=== PATIENT | male | born 1970 | race Caucasian/White ===

== ENCOUNTER 2017-04-24 13:42 | Inpatient (IN) | payer OTHER ==
[2017-04-24] VITALS (8 sets, daily range): BP systolic 138–167; BP diastolic 75–85; PULSE 73–89; RESP 12–26; TEMP 98.5–98.6; O2SAT 95–97
[~2017-04-24] VITALS: Ht 167.6 cm; Wt 93.0 kg
[2017-04-24] MEDS ORDERED: ONDANSETRON HCL 4 MG/2 ML VIAL ONE (13:50)
[2017-04-24] MEDS ORDERED: MIDAZOLAM HCL 5 MG/ML VIAL (1 ML) ONE (13:57)
[2017-04-24] MEDS ORDERED: Post-op Orders (for Pharmacy) XX ONE (14:00)
[2017-04-24] MEDS ORDERED: SODIUM CHLORIDE 0.9% FLUSH 10 ML FLUSH IV FLUSH PRN (14:00)
[2017-04-24] MEDS ORDERED: NALOXONE HCL 0.4 MG/ML AMP IV PUSH PRN (14:00)
[2017-04-24 14:07] LABS: AUTOMATED NEUTROPHIL # 17.7 TH/MM3 (1.8-7.7); BASOPHIL # 0.1 TH/MM3 (0-0.2); BASOPHIL % 0.3 % (0.0-2.0); EOSINOPHIL # 0.2 TH/MM3 (0-0.4); EOSINOPHIL % 0.8 % (0.0-4.0); HEMATOCRIT 40.7 % (39.0-51.0); HEMOGLOBIN 14.4 GM/DL (13.0-17.0); LYMPH % 11.4 % (9.0-44.0); LYMPHOCYTE # 2.4 TH/MM3 (1.0-4.8); MEAN CELL VOLUME 87.8 FL (80.0-100.0); MEAN CORPUSCULAR HGB CONC 35.3 % (32.0-36.0); MEAN PLATELET VOLUME 9.4 FL (7.0-11.0); MONO % 3.6 % (0.0-8.0); MONOCYTE # 0.8 TH/MM3 (0-0.9); NEUT % 83.9 % (16.0-70.0); PLATELET COUNT 202 TH/MM3 (150-450); RED BLOOD COUNT 4.64 MIL/MM3 (4.50-5.90); WHITE BLOOD COUNT 21.1 TH/MM3 (4.0-11.0)
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
[2017-04-24 14:15] LABS: PROTHROMBIN TIME - PATIENT 10.1 SEC (9.8-11.6)
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
[2017-04-24] MEDS ORDERED: IOHEXOL 350 MG/ML 10 ML VIAL (for RAD DIAG) IVCONTRAST ONE (14:16)
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
[2017-04-24] MEDS: SODIUM CHLOR 0.9% 1000 ML INJ 1,000 ML IV SCH ×2 (15:03→22:17)
[2017-04-24] MEDS: HYDROmorphone HCL PF 2 MG/ML VIAL IV PUSH PRN ×3 (15:07→19:16)
[2017-04-24] MEDS: FAMOTIDINE 20 MG/2 ML VIAL IV PUSH SCH ×2 (15:08→22:18)
[2017-04-24] MEDS ORDERED: SODIUM PHOSPHATE INJ 30 MMOL in SODIUM CHLOR 0.9% 250 ML INJ 240 ML IV PRN (19:00)
[2017-04-24] MEDS ORDERED: POTASSIUM CHLOR 20 MEQ PREMIX 100 ML IV PRN ×2 (19:00)
[2017-04-24] MEDS ORDERED: POTASSIUM CHLOR 40 MEQ PREMIX 100 ML IV PRN ×2 (19:00)
[2017-04-24] MEDS ORDERED: MAGNESIUM SULFATE INJ 4 GM in SODIUM CHLORIDE 0.9% INJ 92 ML IV PRN (19:00)
[2017-04-24] MEDS ORDERED: POTASSIUM PHOSPHATE INJ 30 MMOL in SODIUM CHLOR 0.9% 250 ML INJ 250 ML IV PRN (19:00)
[2017-04-24] MEDS ORDERED: POTASSIUM CHLORIDE 20 MEQ PWD PACKET PO PRN (19:00)
[2017-04-24] MEDS ORDERED: MAGNESIUM OXIDE 400 MG TAB PO PRN (19:00)
[2017-04-24] MEDS ORDERED: MAGNESIUM SULFATE INJ 2 GM in SODIUM CHLORIDE 0.9% INJ 96 ML IV PRN (19:00)
[2017-04-24] MEDS ORDERED: POTASSIUM PHOSPHATE MONOBASIC 500 MG TAB PO PRN (19:00)
[2017-04-24] MEDS ORDERED: POTASSIUM PHOSPHATE MONOBASIC 500 MG TAB PO/TUBE PRN (19:00)
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
[2017-04-24 20:27] LABS: MAGNESIUM 1.6 MG/DL (1.5-2.5); PHOSPHORUS 1.3 MG/DL (2.5-4.9)
[2017-04-24] MEDS: SODIUM CHLORIDE 0.9% FLUSH 10 ML FLUSH IV FLUSH SCH (22:17)
[2017-04-25] VITALS (10 sets, daily range): BP systolic 98–162; BP diastolic 54–81; PULSE 64–84; RESP 8–20; TEMP 98.2–98.9; O2SAT 92–99
[2017-04-25] MEDS: HYDROmorphone HCL PF 2 MG/ML VIAL IV PUSH PRN (03:22)
--- NOTE | 2017-04-25 04:56 | RADRPT ---
EXAM DATE/TIME: 04/25/2017 03:12 [place] COMPARISON: CHEST SINGLE AP, April 24, 2017, 13:42. INDICATIONS : Short of breath. MEDICAL HISTORY : None. SURGICAL HISTORY : None. ENCOUNTER: Initial ACUITY: 1 day PAIN SCORE: 0/10 LOCATION: Bilateral chest FINDINGS: A single view of the chest demonstrates the lungs to be symmetrically aerated without evidence of mas s, infiltrate or effusion. No evidence of pneumothorax. The cardiomediastinal contours are unremark able. Healed lateral right 7th rib fracture. Left lateral clavicular plate.. CONCLUSION: The lungs are clear. Kobe Pedersen MD on April 25, 2017 at 4:53 Board Certified Radiologist. This report was verified electronically.
[2017-04-25 05:56] LABS: AUTOMATED NEUTROPHIL # 5.5 TH/MM3 (1.8-7.7); BASOPHIL % 0.2 % (0.0-2.0); EOSINOPHIL % 0.1 % (0.0-4.0); HEMATOCRIT 29.6 % (39.0-51.0); HEMOGLOBIN 10.4 GM/DL (13.0-17.0); LYMPH % 16.5 % (9.0-44.0); LYMPHOCYTE # 1.2 TH/MM3 (1.0-4.8); MEAN CELL VOLUME 90.3 FL (80.0-100.0); MEAN CORPUSCULAR HEMOGLOBIN 31.8 PG (27.0-34.0); MEAN CORPUSCULAR HGB CONC 35.2 % (32.0-36.0); MEAN PLATELET VOLUME 9.6 FL (7.0-11.0); MONO % 6.7 % (0.0-8.0); MONOCYTE # 0.5 TH/MM3 (0-0.9); NEUT % 76.5 % (16.0-70.0); PLATELET COUNT 146 TH/MM3 (150-450); RED BLOOD COUNT 3.28 MIL/MM3 (4.50-5.90); RED CELL DISTRIBUTION WIDTH 13.3 % (11.6-17.2); WHITE BLOOD COUNT 7.2 TH/MM3 (4.0-11.0)
[2017-04-25] MEDS ORDERED: VANCOMYCIN HCL 1000 MG VIAL ONE (06:48)
[2017-04-25] MEDS ORDERED: SODIUM CHLOR 0.9% 250 ML INJ 250 ML ONE (06:49)
[2017-04-25] MEDS ORDERED: BUPIVACAINE/EPINEPHRINE 0.25% PF 10 ML VIAL ONE (06:49)
[2017-04-25 07:11] LABS: BICARBONATE 22.4 MEQ/L (21.0-32.0); CALCIUM 7.5 MG/DL (8.5-10.1); CREATININE 0.7 MG/DL (0.60-1.30)
[2017-04-25] MEDS ORDERED: GENTAMICIN SULFATE 80 MG/2 ML VIAL ONE (07:23)
[2017-04-25] MEDS ORDERED: ceFAZolin 2 GM PREMIX 50 ML ONE (07:33)
[2017-04-25] MEDS: ACETAMINOPHEN 1000 MG/100 ML 100 ML IV SCH ×3 (08:00→23:49)
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
[2017-04-25] MEDS ORDERED: HYDR-3583 PO (08:46)
[2017-04-25] MEDS ORDERED: XARE10TA PO (08:46)
[2017-04-25] MEDS ORDERED: WHEEMIS3 (08:46)
[2017-04-25] MEDS: SODIUM CHLORIDE 0.9% FLUSH 10 ML FLUSH IV FLUSH SCH ×2 (09:00→21:09)
[2017-04-25] MEDS: DOCUSATE SODIUM 50 MG/SENNA 8.6 MG TAB PO SCH ×2 (09:00→21:09)
[2017-04-25] MEDS: MAGNESIUM HYDROXIDE SUSP 30 ML CUP PO SCH ×2 (09:00→21:09)
[2017-04-25] MEDS: LIDOCAINE HCL 5% PATCH T-DERMAL SCH (09:00)
[2017-04-25] MEDS: FAMOTIDINE 20 MG/2 ML VIAL IV PUSH SCH ×2 (09:00→21:09)
[2017-04-25] MEDS: SODIUM CHLOR 0.9% 1000 ML INJ 1,000 ML IV SCH (09:15)
[2017-04-25] MEDS: LACTATED RINGER'S 1000 ML INJ 1,000 ML IV SCH ×2 (09:25→21:22)
[2017-04-25] MEDS ORDERED: diphenhydrAMINE HCL 25 MG CAP PO PRN (09:30)
--- NOTE | 2017-04-25 09:32 | PD.OP ---
cc: Agapito Minaya MD Operative Report Date of Surgery: Apr 25, 2017 Preoperative Diagnosis: Comminuted bilateral femur fractures Postoperative Diagnosis: Procedure: Reduction and antegrade intramedullary nail fixation right femur, reduction and retrograde intramedullary nail fixation left femur Surgeon: Agapito Minaya Residential Therapist(s): EDDIE Andrea PA-C The surgical procedure was assisted by my physician veterinary technician assistant. My P.A. presence was necessary throughout this case for the manipulation and positioning of the surgical extremity. My P.A. was assisting me throughout the duration of this procedure. The skill set of a physician veterinary technician assistant was medically necessary to complete this procedure. During the surgical case the neurosurgical nurse practitioner was working at the back table and the physician veterinary technician assistant was directly assisting me. Operation and Findings: Implants used: [11]mm x [380]mm Synthes TFNA troch nail, 11 mm x 360 mm Synthes retrograde femoral nail Plan of activity: Toe-touch weightbearing left leg, 50% weightbearing right leg for transfers only Patient was seen and evaluated preoperatively. The patient has significant hip pain from bilateral femur fractures. The risk and benefits of surgery were discussed in depth with the patient to include bleeding, infection, nonunion, malunion, need for hip replacement, painful hardware, as well as medical competitions including blood clots, stroke, heart attack, and . Informed consent was obtained. Operative site was marked. Patient was brought to the operating room and placed on fracture table. IV sedation was administered by anesthesiologist. Timeout procedure was performed. Hip and leg were prepped with alcohol followed by DuraPrep and draped in the usual sterile fashion. IV antibiotics were given prior to incision. Procedure began with attention toward right femur. Traction was applied. The leg was manipulated to achieve reduction. Excellent reduction was achieved of comminuted fracture. Fluoroscopy was used to confirm reduction. A three inch incision was made proximal to the trochanter. Subcutaneous tissue was dissected bluntly. Guidepin was placed at the tip of the trochanter and advanced into the femoral canal. Fluoroscopy confirmed appropriate guidepin placement. A opening reamer was placed over the guidepin. A long ball tipped guide pin was now placed down the femoral canal into the center of the distal femur. The nail length was now measured. Fluoroscopy confirmed appropriate guidepin placement. Flexible reamers were now passed over the guidepin to ream the intramedullary canal. The Synthes TFNA nail was attached to the insertion handle. Nail was now placed over the guidepin into the femoral canal. Fluoroscopy confirmed appropriate nail placement. A second incision was made over the lateral thigh. Cannulas were placed through the insertion handle down to the femur. Guidepin was now placed through the femoral nail into the center of the femoral head. Fluoroscopy confirmed appropriate guidepin placement. Screw length was measured. Cannulated drill was placed over the guidepin. Appropriate length lag screw was now placed. Traction was released and compression was applied. The set screw was now tightened in dynamic mode. Next, using perfect [place] technique two distal interlocking screws were placed. Screw holes were predrilled and screw lengths were measured. Final fluoroscopy revealed well aligned fracture with well-placed hardware. Incision was closed with 3-0 Vicryl and ever. Sterile dressings were applied. Next attention was turned towards the left femur. The left femur was visualized under fluoroscopy. It was decided that retrograde femoral nail would be preferable to antegrade femoral nail for this fracture pattern. Patient was now repositioned on a Mani table. Left leg was prepped with alcohol followed by Hibiclens and draped in the usual sterile fashion. Procedure began with reduction of fracture. Traction was applied. The leg was manipulated to achieve reduction. Excellent reduction was achieved. Fluoroscopy was used to confirm reduction. A two inch incision was made over the anterior knee. A medial arthrotomy was created. Guidepin was placed into the distal femur and advanced into the femoral canal. Fluoroscopy confirmed appropriate guidepin placement. A opening reamer was placed over the guidepin. A long ball tipped guide pin was now placed down the femoral canal into the center of the proximal femur. The nail length was now measured. Fluoroscopy confirmed appropriate guidepin placement. Flexible reamers were now passed over the guidepin to ream the intramedullary canal. The Synthes nail was attached to the insertion handle. Nail was now placed over the guidepin into the femoral canal. Fluoroscopy confirmed appropriate nail placement. A small percutaneous incisions were made over the lateral thigh. Cannulas were placed through the insertion handle down to the femur. Using the insertion handle as a guide the distal interlocking screw holes were predrilled and screw lengths were measured. 3 Appropriate length screws was now placed. Next, using perfect [place] technique 3 proximal interlocking screws were placed. Screw holes were predrilled and screw lengths were measured. Final fluoroscopy revealed well aligned fracture with well-placed hardware. Incision was closed with 0 Vicryl, 3-0 Vicryl and ever. Sterile dressings were applied. Patient was awakened and transferred to recovery room. Agapito Minaya MD Apr 25, 2017 09:32
[2017-04-25] MEDS ORDERED: Post-op Orders (for Pharmacy) XX ONE (09:48)
[2017-04-25] MEDS ORDERED: DO NOT ADM ANY ANTICOAGULANT DRUGS PRN (09:50)
[2017-04-25] MEDS ORDERED: MIDAZOLAM HCL 2 MG/2 ML VIAL ONE (09:51)
[2017-04-25] MEDS ORDERED: *morphine SULFATE 4 MG/ML PERIprocedure ONLY ONE ×3 (09:55→10:38)
[2017-04-25] MEDS ORDERED: *MEPERIDINE 25 MG INJ VIAL PERIprocedural Use ONLY ONE (10:04)
--- NOTE | 2017-04-25 10:48 | PD.CONS ---
HPI Service Neurosurgery Consult Requested By JAQUI Murray Reason for Consult Intraparenchymal haemorrhage Primary Care Physician Unknown Review of Systems CONSTITUTIONAL: HEENT: INTEGUMENTARY: RESPIRATORY: CARDIOVASCULAR: GASTROINTESTINAL: GENITOURINARY: MUSCULOSKELETAL: HAEMATOLOGICAL/LYMPHATIC: PSYCHIATRIC: NEUROLOGICAL: Past Family Social History Allergies: Coded Allergies: aspirin (Verified Allergy, Unknown, 04/24/17) Physical Exam Vital Signs Vital Signs Date Time Temp Pulse Resp B/P (MAP) Pulse Ox O2 Delivery O2 Flow Rate FiO2 04/25/17 10:15 74 16 158/90 (112) 98 Nasal Cannula 2 04/25/17 10:00 80 16 162/89 (113) 95 Nasal Cannula 2 04/25/17 09:49 98.3 95 16 173/84 (113) 97 04/25/17 07:07 100 Room Air 04/25/17 07:04 98.5 87 15 144/72 (96) 100 04/25/17 06:00 74 04/25/17 04:00 98.8 71 12 98/54 (69) 92 04/25/17 04:00 71 04/25/17 02:00 76 04/25/17 00:00 98.2 72 12 118/71 (87) 98 04/25/17 00:00 70 04/24/17 22:00 74 04/24/17 20:00 78 04/24/17 20:00 98.6 78 17 138/75 (96) 97 04/24/17 19:00 99 Room Air 04/24/17 18:03 98.6 73 16 138/84 (102) 95 04/24/17 18:00 76 04/24/17 16:00 76 04/24/17 15:26 98.5 88 12 140/85 (103) 95 04/24/17 14:45 98.6 89 26 167/75 (105) 95 04/24/17 13:42 97 Nasal Cannula 4.00 04/24/17 13:42 97 4.00 Physical Exam CONSTITUTIONAL: HEENT: INTEGUMENTARY: RESPIRATORY: CARDIOVASCULAR: GASTROINTESTINAL: GENITOURINARY: MUSCULOSKELETAL: HAEMATOLOGICAL/LYMPHATIC: PSYCHIATRIC: NEUROLOGICAL: Laboratory Laboratory Tests Test 04/24/17 13:44 04/25/17 05:28 White Blood Count 21.1 7.2 Red Blood Count 4.64 3.28 Hemoglobin 14.4 10.4 Bedside Hemoglobin 13.9 Hematocrit 40.7 29.6 Bedside Hematocrit 41.0 Mean Corpuscular Volume 87.8 90.3 Mean Corpuscular Hemoglobin 31.0 31.8 Mean Corpuscular Hemoglobin Concent 35.3 35.2 Red Cell Distribution Width 13.0 13.3 Platelet Count 202 146 Mean Platelet Volume 9.4 9.6 Neutrophils (%) (Auto) 83.9 76.5 Lymphocytes (%) (Auto) 11.4 16.5 Monocytes (%) (Auto) 3.6 6.7 Eosinophils (%) (Auto) 0.8 0.1 Basophils (%) (Auto) 0.3 0.2 Neutrophils # (Auto) 17.7 5.5 Lymphocytes # (Auto) 2.4 1.2 Monocytes # (Auto) 0.8 0.5 Eosinophils # (Auto) 0.2 0.0 Basophils # (Auto) 0.1 0.0 CBC Comment DIFF FINAL DIFF FINAL Differential Comment Prothrombin Time 10.1 Prothromb Time International Ratio 1.0 Activated Partial Thromboplast Time 22.1 Bedside Sodium 140 Bedside Potassium 3.2 Bedside Chloride 107 Bedside Blood Urea Nitrogen 15 Bedside Creatinine 0.9 Bedside Glucose 149 Phosphorus Level 1.3 Magnesium Level 1.6 Blood Urea Nitrogen 10 Creatinine 0.70 Random Glucose 124 Calcium Level 7.5 Sodium Level 141 Potassium Level 3.8 Chloride Level 109 Carbon Dioxide Level 22.4 Anion Gap 10 Estimat Glomerular Filtration Rate 122 Result Diagram: 04/25/1728 04/25/1728 Imaging Recent Impressions Chest X-Ray 04/25/17 0600 Signed Impressions: Service Date/Time: Tuesday, April 25, 2017 03:12 - CONCLUSION: The lungs are clear. Kobe Pedersen MD Pelvis X-Ray 04/24/17 1343 Signed Impressions: Service Date/Time: Monday, April 24, 2017 13:42 - CONCLUSION: No acute disease. Maegan Guzman MD Head CT 04/24/17 1343 Signed Impressions: Service Date/Time: Monday, April 24, 2017 14:05 - CONCLUSION: 1. There is subtle increased parenchymal density along the left frontal cortex and in the orbital frontal portion of the left frontal lobe suggesting possibility of some parenchymal contusion and some subtle extra-axial hemorrhage. Followup CT scan in 24 hours for assessment is warranted. Mark Lemon MD Chest X-Ray 04/24/17 1343 Signed Impressions: Service Date/Time: Monday, April 24, 2017 13:42 - CONCLUSION: 1. There is a rib fracture on the right. I believe the fracture of the right seventh rib may be old. This should be correlated as to site of patient's pain. 2. No pneumothorax identified. The lungs are clear. Mark Lemon MD Cervical Spine CT 04/24/17 1343 Signed Impressions: Service Date/Time: Monday, April 24, 2017 14:05 - CONCLUSION: No acute disease. No fracture visualized. Maegan Guzman MD Abdomen/Pelvis CT 04/24/17 1343 Signed Impressions: Service Date/Time: Monday, April 24, 2017 14:16 - CONCLUSION: Displaced fracture involving the proximal right femoral diaphysis, incompletely imaged. No evidence of solid organ or hollow organ injury within the abdomen or pelvis.. Maegan Guzman MD Thoracic Spine CT 04/24/17 0000 Signed Impressions: Service Date/Time: Monday, April 24, 2017 14:16 - CONCLUSION: 1. No acute fracture of the thoracic spine is identified. 2. Mark Lemon MD Femur X-Ray 04/24/17 0000 Signed Impressions: Service Date/Time: Monday, April 24, 2017 13:42 - CONCLUSION: 1. Comminuted fracture involving the proximal right femoral diaphysis. Mark Lemon MD Femur X-Ray 04/24/17 0000 Signed Impressions: Service Date/Time: Monday, April 24, 2017 13:42 - CONCLUSION: 1. Comminuted fractures involving the proximal femurs bilaterally. Mark Lemon MD Chest CT 04/24/17 0000 Signed Impressions: Service Date/Time: Monday, April 24, 2017 14:16 - CONCLUSION: No evidence of acute abnormality within the thorax.. Maegan Guzman MD Assessment and Plan Assessment and Plan Impression: Left frontal parenchymal contusion Left frontotemporal extra-axial haemorrhage Reviewed labs for today. Interval resolution of leukocytosis. Interval development of anaemia & thrombocytopenia. Plan: Primary management per Trauma. Critical care management per Trauma & [employer]. Neuro checks. Stat CT brain for any decline in neuro status. Hold pharmacologic DVT prophylaxis. Mechanical DVT prophylaxis. Repeat CT brain today. Arcadio Powers Apr 25, 2017 10:48
[2017-04-25] MEDS ORDERED: PROPOFOL 200 MG/20 ML AMP IV ONE (12:00)
[2017-04-25] MEDS ORDERED: DEXAMETHASONE SOD PHOS 4 MG/ML VIAL IV ONE (12:00)
[2017-04-25] MEDS ORDERED: ROCURONIUM INJ 50 MG/5 ML SYRINGE IV PUSH ONE (12:00)
[2017-04-25] MEDS ORDERED: LIDOCAINE HCL 1% PF 5 ML SYRINGE OTHER ONE (12:00)
[2017-04-25] MEDS ORDERED: LACTATED RINGER'S 1000 ML INJ 1,000 ML IV ONE (12:00)
[2017-04-25] MEDS ORDERED: ONDANSETRON HCL 4 MG/2 ML VIAL IV ONE (12:00)
[2017-04-25] MEDS: METHOCARBAMOL 500 MG TAB PO SCH ×2 (13:23→21:09)
[2017-04-25] MEDS ORDERED: ERGOCALCIFEROL (VIT D2) 50,000 UNIT CAP PO SCH (14:00)
--- NOTE | 2017-04-25 14:53 | RADRPT ---
EXAM DATE/TIME: 04/25/2017 08:10 [facility] COMPARISON: CHEST SINGLE AP, April 25, 2017, 3:12. INDICATIONS : ORIF left femur fracture. MEDICAL HISTORY : Unobtainable. SURGICAL HISTORY : Unobtainable. ENCOUNTER: Subsequent ACUITY: 1 day PAIN SCORE: Non-responsive. LOCATION: Left femur. FINDINGS: Examination demonstrates intramedullary yosef placement across the patient's right femur fracture. Alig nment post rodding is excellent. CONCLUSION: 1. Excellent alignment post-ORIF. Mark Lemon MD on April 25, 2017 at 14:51 Board Certified Radiologist. This report was verified electronically.
--- NOTE | 2017-04-25 14:54 | RADRPT ---
EXAM DATE/TIME: 04/25/2017 08:10 [facility] COMPARISON: CHEST SINGLE AP, April 25, 2017, 3:12. INDICATIONS : ORIF left femur fracture. MEDICAL HISTORY : Unobtainable. SURGICAL HISTORY : Unobtainable. ENCOUNTER: Subsequent ACUITY: 1 day PAIN SCORE: Non-responsive. LOCATION: Left femur. FINDINGS: The examination demonstrates intramedullary yosef placement within the left femur. Alignment of the pat ient's comminuted femur fractures is excellent post procedure. CONCLUSION: 1. Excellent alignment of the patient's femur fractures post procedure. Mark Lemon MD on April 25, 2017 at 14:51 Board Certified Radiologist. This report was verified electronically.
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
[2017-04-25] MEDS: ceFAZolin 2 GM PREMIX 50 ML IV SCH (16:14)
[2017-04-25] MEDS: ONDANSETRON HCL 4 MG/2 ML VIAL IV PUSH PRN (17:10)
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
[2017-04-25] MEDS: ACETAMINOPHEN/HYDROcodone 325 MG/10 MG TAB PO PRN (21:17)
--- NOTE | 2017-04-25 22:55 | RADRPT ---
EXAM DATE/TIME: 04/25/2017 22:44 [facility] COMPARISON: No previous studies available for comparison. INDICATIONS : Follow up contusions. RADIATION DOSE: 46.45 CTDIvol (mGy) MEDICAL HISTORY : Hypertension. Cardiovascular disease SURGICAL HISTORY : None. ENCOUNTER: Initial ACUITY: 1 day PAIN SCALE: 0/10 LOCATION: cranial TECHNIQUE: Multiple contiguous axial images were obtained of the head. Using automated exposure control and adj ustment of the mA and/or kV according to patient size, radiation dose was kept as low as reasonably a chievable to obtain optimal diagnostic quality images. DICOM format image data is available electro nically for review and comparison. FINDINGS: CEREBRUM: The ventricles are normal for age. No evidence of midline shift, mass lesion, hemorrhage or acute in farction. No extra-axial fluid collections are seen. POSTERIOR FOSSA: The cerebellum and brainstem are intact. The 4th ventricle is midline. The cerebellopontine angle i s unremarkable. EXTRACRANIAL: The visualized portion of the orbits is intact. SKULL: The calvaria is intact. No evidence of skull fracture. CONCLUSION: 1. No acute findings on the current examination. Carlitos Lugo MD on April 25, 2017 at 22:52 Board Certified Radiologist. This report was verified electronically.
[2017-04-26] VITALS (9 sets, daily range): BP systolic 105–132; BP diastolic 58–67; PULSE 72–90; RESP 14–20; TEMP 98.4–99.2; O2SAT 94–99
[2017-04-26] MEDS: ceFAZolin 2 GM PREMIX 50 ML IV SCH ×2 (00:40→07:53)
[2017-04-26 04:36] LABS: AUTOMATED NEUTROPHIL # 5.1 TH/MM3 (1.8-7.7); BASOPHIL % 0.2 % (0.0-2.0); EOSINOPHIL % 0.1 % (0.0-4.0); HEMATOCRIT 22.6 % (39.0-51.0); HEMOGLOBIN 7.9 GM/DL (13.0-17.0); LYMPH % 20.3 % (9.0-44.0); LYMPHOCYTE # 1.4 TH/MM3 (1.0-4.8); MEAN CELL VOLUME 90.6 FL (80.0-100.0); MEAN CORPUSCULAR HEMOGLOBIN 31.7 PG (27.0-34.0); MEAN PLATELET VOLUME 9.3 FL (7.0-11.0); MONO % 7.1 % (0.0-8.0); MONOCYTE # 0.5 TH/MM3 (0-0.9); NEUT % 72.3 % (16.0-70.0); PLATELET COUNT 125 TH/MM3 (150-450); RED CELL DISTRIBUTION WIDTH 13.5 % (11.6-17.2); WHITE BLOOD COUNT 7.1 TH/MM3 (4.0-11.0)
[2017-04-26 04:57] LABS: ALBUMIN 2.8 GM/DL (3.4-5.0); AST (GOT) 57 U/L (15-37); BICARBONATE 25.7 MEQ/L (21.0-32.0); BLOOD UREA NITROGEN 7 MG/DL (7-18); CALCIUM 7.9 MG/DL (8.5-10.1); CHLORIDE 106 MEQ/L (98-107); CREATININE 0.69 MG/DL (0.60-1.30); GLOMERULAR FILTRATION RATE 124 ML/MIN (>89); GLUCOSE,RANDOM 113 MG/DL (74-106); SODIUM (NA) 141 MEQ/L (136-145)
[2017-04-26 04:58] LABS: ALT (GPT) 25 U/L (12-78)
[2017-04-26 05:00] LABS: ALKALINE PHOSPHATASE 47 U/L (45-117); TOTAL BILIRUBIN ADULT 0.4 MG/DL (0.2-1.0); TOTAL PROTEIN 5.6 GM/DL (6.4-8.2)
[2017-04-26] MEDS: METHOCARBAMOL 500 MG TAB PO SCH ×3 (06:29→21:01)
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
--- NOTE | 2017-04-26 07:05 | PD.ORT.PN ---
Subjective Subjective Remarks POD 1 s/p IMN bilateral femurs doing well. pain controlled. reports that bilateral knees are sore Objective Vitals Vital Signs Date Time Temp Pulse Resp B/P (MAP) Pulse Ox O2 Delivery O2 Flow Rate FiO2 04/26/17 06:00 81 04/26/17 04:00 87 04/26/17 04:00 98.8 87 17 118/65 (82) 99 04/26/17 02:00 72 04/26/17 00:00 99.2 74 14 132/67 (88) 97 04/26/17 00:00 74 04/25/17 22:00 78 04/25/17 20:00 98.9 80 12 162/71 (101) 99 04/25/17 20:00 80 04/25/17 19:00 99 Room Air 04/25/17 18:00 78 04/25/17 16:00 98.9 68 20 150/68 (95) 99 04/25/17 16:00 84 04/25/17 14:00 64 04/25/17 12:00 98.9 76 8 141/81 (101) 98 04/25/17 12:00 76 04/25/17 11:15 97.7 82 14 154/82 (106) 98 04/25/17 10:40 98 Nasal Cannula 2.00 04/25/17 10:30 77 12 160/93 (115) 97 Nasal Cannula 2 04/25/17 10:15 74 16 158/90 (112) 98 Nasal Cannula 2 04/25/17 10:00 80 16 162/89 (113) 95 Nasal Cannula 2 04/25/17 09:49 98.3 95 16 173/84 (113) 97 04/25/17 07:07 100 Room Air 04/25/17 07:04 98.5 87 15 144/72 (96) 100 I/O 04/25/17 04/25/17 04/25/17 04/26/17 04/26/17 04/26/17 07:00 15:00 23:00 07:00 15:00 23:00 Intake Total 3000 ml 240 ml Output Total 575 ml 300 ml 500 ml 725 ml Balance -575 ml 2700 ml -260 ml -725 ml Intake Oral 240 ml IV Total 1000 ml Other 2000 ml Output Urine Total 575 ml 200 ml 500 ml 725 ml Stool Total 0 ml 0 ml Estimated Blood Loss 100 ml Result Diagram: 04/26/17 0416 04/26/17 0416 Imaging Last 24 hours Impressions Chest X-Ray 04/26/17 0600 Signed Impressions: Service Date/Time: Wednesday, April 26, 2017 05:10 - CONCLUSION: The lungs are clear. Kobe Pedersen MD Objective Remarks RLE: dressings clean and dry. intact. NVI LLE: dressings clean and dry. intact. NVI Assessment & Plan Assessment and Plan 1) Right Femur fx s/p Antegrade IMN - POD 1 2) Left Femur Fx s/p Retrograde IMN - POD 1 -daily dressing changes to bilateral legs POD 2 -50%WB for transfers only on RLE -TTWB to LLE -DVT prophylaxis -CM for DC planning -Ortho surgeries complete -f/u with Dr Jacobsen or PA in 2 weeks Jose Antonio Ta/Remote Operations Producer SARA Apr 26, 2017 07:05
[2017-04-26] MEDS: LIDOCAINE HCL 5% PATCH T-DERMAL SCH (09:00)
[2017-04-26] MEDS: CHOLECALCIFEROL (VIT D3) 1000 UNIT TAB PO SCH (09:43)
[2017-04-26] MEDS: ENOXAPARIN SODIUM 30 MG/0.3 ML SYRINGE SQ SCH ×2 (09:43→21:01)
[2017-04-26] MEDS: MAGNESIUM HYDROXIDE SUSP 30 ML CUP PO SCH ×2 (09:44→21:00)
[2017-04-26] MEDS: FAMOTIDINE 20 MG/2 ML VIAL IV PUSH SCH (09:44)
[2017-04-26] MEDS: DOCUSATE SODIUM 50 MG/SENNA 8.6 MG TAB PO SCH ×2 (09:44→21:00)
[2017-04-26] MEDS: LACTATED RINGER'S 1000 ML INJ 1,000 ML IV SCH (09:44)
[2017-04-26] MEDS: SODIUM CHLORIDE 0.9% FLUSH 10 ML FLUSH IV FLUSH SCH ×2 (09:44→20:59)
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
[2017-04-26] MEDS: HYDROmorphone HCL PF 2 MG/ML VIAL IV PUSH PRN ×2 (13:43→18:15)
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
--- NOTE | 2017-04-26 20:50 | RADRPT ---
EXAM DATE/TIME: 04/26/2017 19:10 [facility] COMPARISON: CT BRAIN W/O CONTRAST, April 25, 2017, 22:44. INDICATIONS : Cephalgia today. RADIATION DOSE: 43.35 CTDIvol (mGy) MEDICAL HISTORY : None SURGICAL HISTORY : None. ENCOUNTER: Subsequent ACUITY: 1 day PAIN SCALE: 5/10 LOCATION: Bilateral head TECHNIQUE: Multiple contiguous axial images were obtained of the head. Using automated exposure control and adj ustment of the mA and/or kV according to patient size, radiation dose was kept as low as reasonably a chievable to obtain optimal diagnostic quality images. DICOM format image data is available electro nically for review and comparison. FINDINGS: CEREBRUM: The ventricles are normal for age. No evidence of midline shift, mass lesion, hemorrhage or acute in farction. No extra-axial fluid collections are seen. POSTERIOR FOSSA: The cerebellum and brainstem are intact. The 4th ventricle is midline. The cerebellopontine angle i s unremarkable. EXTRACRANIAL: The visualized portion of the orbits is intact. SKULL: The calvaria is intact. No evidence of skull fracture. CONCLUSION: Normal examination for a patient of this age. Carlitos Lugo MD on April 26, 2017 at 20:47 Board Certified Radiologist. This report was verified electronically.
[2017-04-26] MEDS: ACETAMINOPHEN/HYDROcodone 325 MG/10 MG TAB PO PRN (21:01)
[2017-04-27] VITALS (14 sets, daily range): BP systolic 113–137; BP diastolic 60–84; PULSE 82–93; RESP 16–20; TEMP 97.9–99.3; O2SAT 92–99
[2017-04-27] MEDS: METHOCARBAMOL 500 MG TAB PO SCH ×3 (04:04→20:49)
[2017-04-27] MEDS: HYDROmorphone HCL PF 2 MG/ML VIAL IV PUSH PRN ×3 (04:05→20:51)
[2017-04-27 04:07] LABS: AUTOMATED NEUTROPHIL # 3.8 TH/MM3 (1.8-7.7); BASOPHIL % 0.3 % (0.0-2.0); EOSINOPHIL # 0.1 TH/MM3 (0-0.4); EOSINOPHIL % 1.1 % (0.0-4.0); LYMPH % 21.6 % (9.0-44.0); LYMPHOCYTE # 1.2 TH/MM3 (1.0-4.8); MEAN CELL VOLUME 89.5 FL (80.0-100.0); MEAN CORPUSCULAR HEMOGLOBIN 32.1 PG (27.0-34.0); MEAN CORPUSCULAR HGB CONC 35.9 % (32.0-36.0); MONOCYTE # 0.3 TH/MM3 (0-0.9); PLATELET COUNT 121 TH/MM3 (150-450); RED CELL DISTRIBUTION WIDTH 13.1 % (11.6-17.2); WHITE BLOOD COUNT 5.4 TH/MM3 (4.0-11.0)
[2017-04-27 04:19] LABS: HEMATOCRIT 18.8 % (39.0-51.0); HEMOGLOBIN 6.7 GM/DL (13.0-17.0)
[2017-04-27 04:35] LABS: ALBUMIN 2.7 GM/DL (3.4-5.0); ALT (GPT) 23 U/L (12-78); AST (GOT) 62 U/L (15-37); BICARBONATE 27.5 MEQ/L (21.0-32.0); BLOOD UREA NITROGEN 7 MG/DL (7-18); CALCIUM 7.8 MG/DL (8.5-10.1); CHLORIDE 105 MEQ/L (98-107); CREATININE 0.63 MG/DL (0.60-1.30); GLOMERULAR FILTRATION RATE 138 ML/MIN (>89); GLUCOSE,RANDOM 112 MG/DL (74-106); SODIUM (NA) 139 MEQ/L (136-145)
[2017-04-27 04:38] LABS: ALKALINE PHOSPHATASE 47 U/L (45-117); TOTAL BILIRUBIN ADULT 0.4 MG/DL (0.2-1.0); TOTAL PROTEIN 5.8 GM/DL (6.4-8.2)
--- NOTE | 2017-04-27 05:40 | RADRPT ---
EXAM DATE/TIME: 04/27/2017 05:20 [facility] COMPARISON: CHEST SINGLE AP, April 26, 2017, 5:10. INDICATIONS : Shortness of breath. MEDICAL HISTORY : None. SURGICAL HISTORY : ORIF left clavicle ENCOUNTER: Subsequent ACUITY: 4 - 6 days PAIN SCORE: 6/10 LOCATION: Bilateral chest FINDINGS: A single view of the chest demonstrates the lungs to be symmetrically aerated without evidence of mas s, infiltrate or effusion. The cardiomediastinal contours are unremarkable. Left lateral clavicular plate. Healed posterolateral right 7th rib fracture. Stable calcified left hilar node and calcifie d left lung granulomata.. CONCLUSION: The lungs are clear. Kobe Pedersen MD on April 27, 2017 at 5:38 Board Certified Radiologist. This report was verified electronically.
[2017-04-27] MEDS: SODIUM CHLORIDE 0.9% FLUSH 10 ML FLUSH IV FLUSH SCH ×2 (09:00→20:48)
[2017-04-27] MEDS: DOCUSATE SODIUM 50 MG/SENNA 8.6 MG TAB PO SCH ×2 (09:00→20:48)
[2017-04-27] MEDS: LIDOCAINE HCL 5% PATCH T-DERMAL SCH (09:00)
--- NOTE | 2017-04-27 09:14 | PD.ORT.PN ---
Subjective Subjective Remarks pain controlled. having some difficulty with transfers Objective Vitals Vital Signs Date Time Temp Pulse Resp B/P (MAP) Pulse Ox O2 Delivery O2 Flow Rate FiO2 04/27/17 08:22 97.9 85 16 129/73 97 04/27/17 08:05 98.2 88 16 124/76 94 04/27/17 07:45 98.3 86 16 132/77 94 04/27/17 07:37 132/77 04/27/17 07:35 98.5 88 20 137/75 (95) 96 04/27/17 07:18 98.5 87 16 127/77 98 04/27/17 07:01 98.5 88 16 137/75 96 04/27/17 04:00 98.0 82 18 123/60 (81) 92 04/27/17 00:00 98.9 90 18 113/75 (88) 95 04/26/17 20:00 99.1 85 20 117/58 (77) 95 04/26/17 16:56 98.6 90 20 105/60 (75) 94 04/26/17 15:00 94 Room Air 04/26/17 12:00 84 04/26/17 12:00 98.5 84 20 98 04/26/17 10:00 86 I/O 04/26/17 04/26/17 04/26/17 04/27/17 04/27/17 04/27/17 06:59 14:59 22:59 06:59 14:59 22:59 Intake Total 100 ml 10 ml Output Total 725 ml 1100 ml Balance -725 ml 100 ml -1100 ml 10 ml IV Total 100 ml Blood Product IV Normal Saline Flush 10 ml Output Urine Total 725 ml 1100 ml Stool Total 0 ml Result Diagram: 04/27/17 0348 04/27/17 0348 Imaging Last 24 hours Impressions Chest X-Ray 04/26/17 0600 Signed Impressions: Service Date/Time: Wednesday, April 26, 2017 05:10 - CONCLUSION: The lungs are clear. Kobe Pedersen MD Objective Remarks RLE: dressings clean and dry with some previous drainage. Dressing taken down and incisions doing well. mild swelling. intact. NVI LLE: dressings clean and dry. intact. NVI Assessment & Plan Assessment and Plan 1) Right Femur fx s/p Antegrade IMN - POD 2 2) Left Femur Fx s/p Retrograde IMN - POD 2 -daily dressing changes to bilateral legs POD 2 -50%WB for transfers only on RLE -TTWB to LLE -DVT prophylaxis H&H 6.7/ 18.8 trauma team to consider transfusion of blood. has been trending down -CM for DC planning discharge tomorrow if medically stable -Ortho surgeries complete -f/u with Dr Jacobsen or PA in 2 weeks Santo Chapman Jr. Apr 27, 2017 09:14
[2017-04-27] MEDS: ENOXAPARIN SODIUM 30 MG/0.3 ML SYRINGE SQ SCH ×2 (09:36→20:50)
[2017-04-27] MEDS: GABAPENTIN 300 MG CAP PO SCH ×3 (09:37→18:02)
[2017-04-27] MEDS: MAGNESIUM HYDROXIDE SUSP 30 ML CUP PO SCH ×2 (09:38→20:48)
[2017-04-27] MEDS: CHOLECALCIFEROL (VIT D3) 1000 UNIT TAB PO SCH (09:42)
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
[2017-04-27] MEDS ORDERED: fentaNYL 50 MCG/HR PATCH T-DERMAL SCH (16:00)
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
[2017-04-28] VITALS: BP 121/89; PULSE 84; RESP 20; TEMP 98.5; O2SAT 94
[2017-04-28 04:00] VITALS: BP 130/70; PULSE 86; RESP 18; TEMP 98.3; O2SAT 94
[2017-04-28 04:59] LABS: HEMATOCRIT 27.3 % (39.0-51.0)
[2017-04-28] MEDS: oxyCODONE/ACETAMINOPHEN 10 MG/325 MG TAB PO PRN ×2 (04:59→15:34)
[2017-04-28] MEDS: METHOCARBAMOL 500 MG TAB PO SCH ×2 (04:59→11:07)
--- NOTE | 2017-04-28 07:03 | PD.ORT.PN ---
Subjective Subjective Remarks POD 3 s/p IMN bilateral femurs doing well. pain controlled. reports that bilateral knees are sore. made it to bedside commode on own today Objective Vitals Vital Signs Date Time Temp Pulse Resp B/P (MAP) Pulse Ox O2 Delivery O2 Flow Rate FiO2 04/28/17 00:00 98.5 84 20 121/89 (100) 94 04/27/17 20:00 99.3 93 20 129/72 (91) 95 04/27/17 15:55 98.1 84 20 132/81 (98) 93 04/27/17 12:03 98.3 85 20 136/84 (101) 99 04/27/17 12:00 98.3 85 20 136/84 99 04/27/17 10:06 98.2 84 16 132/76 97 04/27/17 08:22 97.9 85 16 129/73 97 04/27/17 08:05 98.2 88 16 124/76 94 04/27/17 07:45 98.3 86 16 132/77 94 04/27/17 07:37 132/77 04/27/17 07:35 98.5 88 20 137/75 (95) 96 04/27/17 07:18 98.5 87 16 127/77 98 I/O 04/27/17 04/27/17 04/27/17 04/28/17 04/28/17 04/28/17 07:00 15:00 23:00 07:00 15:00 23:00 Intake Total 835 ml Output Total 1100 ml 1000 ml Balance -1100 ml 835 ml -1000 ml Packed Cells 750 ml Blood Product IV Normal Saline Flush 85 ml Output Urine Total 1100 ml 1000 ml # Bowel Movements 1 Result Diagram: 04/28/17 0410 04/27/17 0348 Imaging Last 24 hours Impressions Chest X-Ray 04/26/17 0600 Signed Impressions: Service Date/Time: Wednesday, April 26, 2017 05:10 - CONCLUSION: The lungs are clear. Kobe Pedersen MD Objective Remarks RLE: dressings clean and dry with some previous drainage. Dressing taken down and incisions doing well. mild swelling. intact. NVI LLE: dressings clean and dry. intact. NVI Assessment & Plan Assessment and Plan 1) Right Femur fx s/p Antegrade IMN - POD 3 2) Left Femur Fx s/p Retrograde IMN - POD 3 -daily dressing changes to bilateral legs -50%WB for transfers only on RLE -TTWB to LLE -DVT prophylaxis -CM for DC planning -discharge with [facility] when medically stable -Ortho surgeries complete -f/u with Dr Jacobsen or PA in 2 weeks Jose Antonio Ta/First Evie RUIZ Apr 28, 2017 07:03
[2017-04-28] MEDS ORDERED: BEDSIDE COMMODE1 MI1 (07:05)
--- NOTE | 2017-04-28 07:05 | HHI.FF ---
Face to Face Verification Diagnosis: (1) Bilateral femoral fractures Physical Therapy Transfer training, bed to chair, Wheelchair training Right LE Weight Bearing: Partial WB 50% (for transfers only) Left LE Weight Bearing: Toe Touch WB Nursing Dressing Changes: Daily dressing change, Xeroform, Coverderm/Primapore I have seen patient Gutierrez Scott Jr Carlin on 04/28/17. My clinical findings support the need for the requested home health care services because: Ltd mobility - disease progression I certify that my clinical findings support that this patient is homebound because: Post-op weakness Jose Antonio Ta/Service Administrator PA Apr 28, 2017 07:05
[2017-04-28] MEDS ORDERED: PERI PO (07:11)
[2017-04-28] MEDS ORDERED: METH500T3 PO (07:14)
[2017-04-28 08:00] VITALS: BP 136/74; PULSE 91; RESP 18; TEMP 98; O2SAT 96
[2017-04-28] MEDS: MAGNESIUM HYDROXIDE SUSP 30 ML CUP PO SCH (11:05)
[2017-04-28] MEDS: GABAPENTIN 300 MG CAP PO SCH ×2 (11:05→15:01)
[2017-04-28] MEDS: CHOLECALCIFEROL (VIT D3) 1000 UNIT TAB PO SCH (11:05)
[2017-04-28] MEDS: DOCUSATE SODIUM 50 MG/SENNA 8.6 MG TAB PO SCH (11:05)
[2017-04-28] MEDS: ENOXAPARIN SODIUM 30 MG/0.3 ML SYRINGE SQ SCH (11:05)
[2017-04-28] MEDS: SODIUM CHLORIDE 0.9% FLUSH 10 ML FLUSH IV FLUSH SCH (11:06)
[2017-04-28] MEDS: ONDANSETRON HCL 4 MG/2 ML VIAL IV PUSH PRN (11:08)
[2017-04-28 12:00] VITALS: BP 134/85; PULSE 95; RESP 17; TEMP 97.9; O2SAT 94
[2017-04-28] MEDS ORDERED: WALKER WHEELS/F1 MIS (13:58)
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
[2017-04-30] MEDS ORDERED: REMOVE OLD DURAGESIC (FENTANYL) PATCH T-DERMAL SCH (16:00)
== END 2017-04-28 16:37 | disposition home health service (06) | DRG 956 ==
LOC: NEPI 13:42 → EDBD 14:46 → NEDA 14:46 → N03A 15:00 → N05B 04-26 14:51
PROVIDERS: ADMIT Surgery; ATTEND Surgery
PROC: 30233N1 Transfusion of Nonautologous Red Blood Cells into Peripheral Vein, Percutaneous Approach (ICD-10-PCS; 2017-04-24)
PROC: 0QS806Z Reposition Right Femoral Shaft with Intramedullary Internal Fixation Device, Open Approach (ICD-10-PCS; 2017-04-25)
PROC: 0QS906Z Reposition Left Femoral Shaft with Intramedullary Internal Fixation Device, Open Approach (ICD-10-PCS; principal; 2017-04-25 07:17)
DX: S72.8X2A Other fracture of left femur, initial encounter for closed fracture (principal); S06.321A Contusion and laceration of left cerebrum with loss of consciousness of 30 minutes or less, initial encounter; S72.8X1A Other fracture of right femur, initial encounter for closed fracture; D69.6 Thrombocytopenia, unspecified; S22.39XA Fracture of one rib, unspecified side, initial encounter for closed fracture; S72.92XA Unspecified fracture of left femur, initial encounter for closed fracture; S00.91XA Abrasion of unspecified part of head, initial encounter; D64.9 Anemia, unspecified; V89.1XXA Person injured in unspecified nonmotor-vehicle accident, nontraffic, initial encounter; Y93.89 Activity, other specified; Y92.39 Other specified sports and athletic area as the place of occurrence of the external cause; Y99.0 Civilian activity done for income or pay; Z72.0 Tobacco use
CPT/HCPCS: 36430; 70450; 71045; 71260; 72125; 72128; 72131; 72170; 73551; 73552; 74177; 76000; 80048; 80053; 83735; 84100; 85014; 85018; 85025; 85610; 85730; 86850; 86900; 86901; 86920; 94150; 96374; 96375; 99291; C1713; G0390; J0131; J0690; J1100; J1170; J1580; J1650; J2175; J2250; J2270; J2405; J3010; J3370; J7030; J7050; J7120; P9016; Q9967